=== PATIENT | male | born 1975 | race Caucasian/White ===

== ENCOUNTER 2025-05-09 07:00 | Day surgery (SDC) | payer OTHER ==
[~2025-05-09] VITALS: Ht 182.9 cm; Wt 106.7 kg
[2025-05-09] MEDS: ceFAZolin SOD 2 GM IV ONCE IV ONE (06:00)
[~2025-05-09 07:00] MED LIST: BAYE325T2 PO; LEXA5TAB13 PO; MULTTAB61 PO; OMEP40CA4 PO; PRAV10TA43 PO; PROP325C11 PO
[2025-05-09] MEDS ORDERED: dexmedeTOMIDine (4 MCG/ML) 200 MCG/50 ML BTL As Ordered ONE (07:35)
[2025-05-09] MEDS ORDERED: ONDANSETRON 4MG/2ML VIAL As Ordered ONE (07:35)
[2025-05-09] MEDS ORDERED: LIDOCAINE 2% 100 MG/5 ML SDV (FOR ANES.) As Ordered ONE (07:35)
[2025-05-09] MEDS ORDERED: dexAMETHasone 4 MG/ML 1 ML VIAL As Ordered ONE (07:35)
[2025-05-09] MEDS ORDERED: ROCURONIUM BROMIDE 50MG/5ML VIAL As Ordered ONE (07:35)
[2025-05-09] MEDS ORDERED: MIDAZOLAM INJ 2 MG/2 ML VIAL As Ordered ONE (07:36)
[2025-05-09] MEDS ORDERED: KETOROLAC 30 MG/ML 1 ML VIAL As Ordered ONE (07:37)
[2025-05-09] MEDS ORDERED: SEVOFLURANE INHAL SOLN 250 ML BTL As Ordered ONE (07:48)
[2025-05-09] MEDS ORDERED: SUGAMMADEX SODIUM 500 MG/5 ML VIAL As Ordered ONE (07:48)
[2025-05-09] MEDS ORDERED: ACETAMINOPHEN 1000MG/100ML IV BAG As Ordered ONE (07:50)
[2025-05-09] MEDS ORDERED: LIDOCAINE 5% OINT 30 GM TUBE As Ordered ONE (07:54)
[2025-05-09] MEDS ORDERED: LACRILUBE (AKWA TEARS) OPHTH OINT 3.5 GM As Ordered ONE (08:42)
[2025-05-09] MEDS ORDERED: HYDROMORPHONE HCL 0.5 MG/0.5 ML SYRINGE IV PRN (10:05)
[2025-05-09] MEDS ORDERED: MORPHINE 4 MG/ML 1 ML VIAL IV PRN (10:05)
[2025-05-09] MEDS ORDERED: LABETALOL 100 MG/20 ML VIAL As Ordered ONE (11:21)
[2025-05-09 11:44] VITALS: BP 131/69; TEMP 97.9; O2SAT 97
== END 2025-05-09 12:11 | disposition home or self-care (01) ==
LOC: M SDC 07:00
PROVIDERS: ATTEND Surgery
DX: K40.20 Bilateral inguinal hernia, without obstruction or gangrene, not specified as recurrent (principal); I48.91 Unspecified atrial fibrillation; E78.00 Pure hypercholesterolemia, unspecified; Q21.0 Ventricular septal defect; K21.9 Gastro-esophageal reflux disease without esophagitis; Z79.82 Long term (current) use of aspirin; Z79.899 Other long term (current) drug therapy; Z87.74 Personal history of (corrected) congenital malformations of heart and circulatory system; Z98.84 Bariatric surgery status; Z95.2 Presence of prosthetic heart valve
CPT/HCPCS: 49650; C1781; J0131; J0665; J0688; J1100; J1920; J2250; J2405; J2765; J3010